=== PATIENT | male | born 1935 | race African-American/Black ===

== ENCOUNTER 2023-05-14 09:51 | Inpatient (IN) | payer MEDICARE ==
[~2023-05-14] VITALS: Ht 167.6 cm; Wt 78.9 kg
[2023-05-14] MEDS ORDERED: METF-414 PO (12:46)
[2023-05-14] MEDS ORDERED: HEPARIN 1000 UNITS/ML 10ML ONE ×2 (13:16→14:45)
[2023-05-14] MEDS ORDERED: FENTANYL CITRATE/PF 50MCG/ML 2ML VIAL ONE (13:16)
[2023-05-14] MEDS ORDERED: LIDOCAINE HCL 1% 20ML VIAL (Pyxis) INJ ONE ×2 (13:16→14:23)
[2023-05-14] MEDS ORDERED: MIDAZOLAM HCL 2 MG/2 ML VIAL ONE (13:16)
[2023-05-14] MEDS ORDERED: IODIXANOL 320MG/ML 100 ML BOTTLE IV ONE ×3 (13:17→14:51)
[2023-05-14] MEDS ORDERED: NOREPINEPHRINE BITARTRATE 1MG/ML 4ML IV ONE (14:35)
[2023-05-14] MEDS ORDERED: ATROPINE SULFATE 1MG/10ML SYR ONE (14:40)
[2023-05-14] MEDS ORDERED: ASPIRIN 325MG EC TABLET PO ONE (14:59)
[2023-05-14] MEDS ORDERED: CLOPIDOGREL 75MG TABLET ONE (14:59)
[2023-05-14] MEDS ORDERED: ACETAMINOPHEN 325MG TABLET PO PRN (15:30)
[2023-05-14] MEDS ORDERED: ONDANSETRON HCL 4MG/2ML INJ IV PRN (15:30)
[2023-05-14] MEDS ORDERED: ATROPINE SULFATE 1MG/10ML SYR IV PRN (15:30)
[2023-05-14 16:41] VITALS: BP 135/70; PULSE 60; RESP 20; TEMP 97.6
[2023-05-14 18:00] VITALS: BP 136/76; PULSE 66; RESP 16; TEMP 97.6
[2023-05-14 19:00] VITALS: BP 139/68; PULSE 63; RESP 20
[2023-05-14 20:00] VITALS: BP 126/68; PULSE 67; RESP 18; TEMP 98
[2023-05-15] VITALS: BP 110/72; PULSE 52; RESP 19; TEMP 98.4
[2023-05-15 04:00] VITALS: BP 141/94; PULSE 67; RESP 17; TEMP 98.2
[2023-05-15 07:30] LABS: BASOPHILS % 0.8 % (0.0-2.0); DIFFERENTIAL COMMENT 0; EOSINOPHILS % 4.6 % (0.0-5.0); HEMATOCRIT. 38.5 % (42.0-52.0); HEMOGLOBIN. 12.3 g/dL (14.0-18.0); MEAN CORPUSCULAR HEMOGLOBIN 24.7 pg (28.0-32.0); MEAN CORPUSCULAR VOLUME 77.1 fL (80.0-94.0); MEAN PLATELET VOLUME 9.8 fl (7.4-10.4); MONOCYTES % 10.2 % (2.0-8.0); NEUTROPHILS % 64.4 % (40.0-76.0); PLATELET 195 x1000/uL (130-400); RED BLOOD CELL COUNT 4.99 mill/uL (4.7-6.1); RED CELL DISTRIBUTION WIDTH 14.7 % (11.6-14.6); WHITE BLOOD COUNT 8.9 x1000/uL (4.5-11.0)
[2023-05-15 07:34] LABS: CALCIUM 8.7 mg/dL (8.7-10.4); CARBON DIOXIDE 26 mEq/L (21-32); CHLORIDE 105 mEq/L (98-107); CREATININE 0.7 mg/dL (0.6-1.3); GLUCOSE 135 mg/dL (70-105); SODIUM 138 mEq/L (136-145); UREA NITROGEN BLOOD 11 mg/dL (9-23)
[2023-05-15 08:00] VITALS: BP 97/51; PULSE 84; RESP 20; TEMP 98.1
[2023-05-15] MEDS: ASPIRIN 325MG TABLET PO SCH (08:10)
[2023-05-15] MEDS: CLOPIDOGREL 75MG TABLET PO SCH (08:11)
[2023-05-15 08:30] VITALS: BP 123/58; PULSE 82; RESP 20
[2023-05-15 10:35] VITALS: BP 123/58; PULSE 82; TEMP 98.1
[2023-05-15 12:00] VITALS: BP 125/62; PULSE 56; RESP 13; TEMP 96.7
== END 2023-05-15 12:30 | disposition home or self-care (01) | DRG 322 ==
LOC: CCL 09:51 → 3WST 15:50
PROVIDERS: ADMIT Specialist; ATTEND Specialist
PROC: 4A023N7 Measurement of Cardiac Sampling and Pressure, Left Heart, Percutaneous Approach (ICD-10-PCS; principal; 2023-05-14)
PROC: 027035Z Dilation of Coronary Artery, One Artery with Two Drug-eluting Intraluminal Devices, Percutaneous Approach (ICD-10-PCS; 2023-05-14)
PROC: B2111ZZ Fluoroscopy of Multiple Coronary Arteries using Low Osmolar Contrast (ICD-10-PCS; 2023-05-14)
DX: I25.118 Atherosclerotic heart disease of native coronary artery with other forms of angina pectoris (principal); E87.5 Hyperkalemia; I25.2 Old myocardial infarction; I10 Essential (primary) hypertension; E11.9 Type 2 diabetes mellitus without complications; I27.20 Pulmonary hypertension, unspecified; I45.10 Unspecified right bundle-branch block; I49.1 Atrial premature depolarization; E78.5 Hyperlipidemia, unspecified; Z79.84 Long term (current) use of oral hypoglycemic drugs; Z82.49 Family history of ischemic heart disease and other diseases of the circulatory system; Z79.4 Long term (current) use of insulin
CPT/HCPCS: 36415; 80048; 82962; 85025; 85347; 92928; 93005; 93458; C1760; C1769; C1874; C1887; C1893; J0461; J1644; J2250; J3010; J3490; Q9967